=== PATIENT | female | born 1970 | race Two or more races ===

== ENCOUNTER 2019-02-28 13:46 | Day surgery (SDC) | payer OTHER ==
[2019-02-26 11:01] VITALS: BMI 32.1
--- NOTE | 2019-02-28 14:26 | HP ---
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 Persistent heavy bleeding here, repeat EMB normal, but sono showed ES 1.6cm again. History Source: Patient Limitations to Obtaining History: Language Barrier - Past Medical History BAR TENDER: No: Alzheimer's, CVA, Dementia, Migraine, Multiple Sclerosis, Peripheral Neuropathy, Parkinson's, Seizure, Syncope, TIA, Vertigo, Other Cardiovascular: No: AFIB, Aneurysm, Aortic Insufficiency, Aortic Stenosis, CAD, CHF, Deep Vein Thrombosis, HTN, Hyperlipdemia, HI, Mitral Insufficiency, Mitral Stenosis, Murmur, Pulmonary Hypertension, Other Pulmonary: No: Asthma, Bronchitis, Cancer, COPD, O2 Dependent, Pneumonia, Previously Intubated, Pulmonary Embolus, Pulmonary Fibrosis, Sleep Apnea, Other Hepatobiliary: No: Cirrhosis, Cholelithiasis, Cholecystitis, Choledocholithiasis , Hepatitis A, Hepatitis B, Hepatitis C, Other Renal/: No: Renal Failure, Renal Inusuff, BPH, Cancer, Hematuria, Hemodialysis , Neurogenic Bladder, Renal Calculi, UTI, Other Reproductive: Yes: Other (Endometrial Hyperplasia) ...LMP: 02/24/19 Heme/Onc: No: Anemia, B12 Deficiency, Bleeding Disorder, Cancer, Current Chemotherapy, Current Radiation Therapy, Hemochromatosis, Hypercoaguable State, Myeloproliferative Synd, Sickle Cell Disease, Sickle Cell Trait, Thrombocytopenia, Other Infectious Disease: No: AIDS, C-Diff, Herpes Zoster, HIV, MRSA, STD's, Tuberculosis, VREF, Other Psych: No: Addictions, Anxiety, Bipolar, Depression, Panic, Psychosis, Schizophrenia, Other Musculoskeletal: No: Bursitis, Chronic low back pain, Hemiparesis, Hemiplegia, Osteoarthritis, Paraplegia, Other Rheumatology: No: Fibromyalgia, Gout, Lupus, Rheumatoid Arthritis, Sarcoidosis, Vasculitis, Other ENT: No: Allergic Rhinitis, Sinusitis, Other Endocrine: No: Sami's Disease, Melissa's Disease, Diabetes Insipidus, Diabetes Mellitus, Hyperparathyroidism, Hyperthyroidism, Hypothyroidism, Osteopenia, SIADH, Other Dermatology: No: Basal Cell, Cellulitis, Eczema, Melanoma, Psoriasis, Squamous Cell, Other - Past Surgical History Additional Past Surgical History: D&C - Smoking History Smoking history: Never smoked Have you smoked in the past 12 months: No - Alcohol/Substance Use Hx Alcohol Use: No (occassionally) - Social History Usual Living Arrangement: Yes: Alone History of Recent Travel: No Home Medications - Allergies Allergies/Adverse Reactions: Allergies Allergy/AdvReac Type Severity Reaction Status Date / Time No Known Allergies Allergy Verified 02/28/19 13:59 - Home Medications Home Medications: Ambulatory Orders NK [No Known Home Medication] 02/26/19 Physical Examination Vital Signs: Vital Signs Temperature 97.7 F 02/28/19 14:02 Pulse Rate 72 02/28/19 14:02 Respiratory Rate 18 02/28/19 14:02 Blood Pressure 132/77 02/28/19 14:02 O2 Sat by Pulse Oximetry (%) 98 02/28/19 14:02
[2019-02-28] MEDS ORDERED: MIDAZOLAM HCL 2 MG/2 ML SINGLE DOSE VIAL ONE (16:06)
[2019-02-28] MEDS ORDERED: PROPOFOL 20 ML ONE ×2 (16:06→16:17)
[2019-02-28] MEDS ORDERED: SUCCINYLCHOLINE CHLORIDE 200 MG/10 ML VIAL ONE (16:06)
[2019-02-28] MEDS ORDERED: LIDOCAINE HCL/PF 2% SDV 5ML VIAL ONE (16:08)
[2019-02-28] MEDS ORDERED: KETOROLAC TROMETHAMINE 30 MG/1 ML VIAL ONE (16:38)
--- NOTE | 2019-02-28 16:52 | OP ---
Operative Note - Note: Operative Date: 02/28/19 Pre-Operative Diagnosis: Dysfunctional Uterine Bleeding Operation: Diagnostic Hysteroscopy, Dilation and Curretage Findings: Normal endometrium, normal ostia bilaterally, normal cervical canal Surgeon: Brenda Aguilar Anesthesia: MAC Estimated Blood Loss (mls): 15 Operative Report Dictated: Yes
[2019-02-28] MEDS ORDERED: PROMETHAZINE HCL 25 MG/1 ML VIAL IVPUSH PRN (17:40)
[2019-02-28] MEDS ORDERED: ONDANSETRON 4 MG/2 ML VIAL IVPUSH PRN (17:40)
[2019-02-28] MEDS ORDERED: oxyCODONE HCL 5 MG TABLET PO PRN (17:40)
[2019-02-28] MEDS ORDERED: LACTATED RINGERS SOLUTION 1,000 ML IV SCH (17:45)
--- NOTE | 2019-02-28 18:19 | OP ---
DATE OF OPERATION: 02/28/2019 PREOPERATIVE DIAGNOSIS: Dysfunctional uterine bleeding. POSTOPERATIVE DIAGNOSIS: Dysfunctional uterine bleeding. PROCEDURE: Diagnostic hysteroscopy, dilation and curettage. ANESTHESIA: IV sedation INTRAVENOUS FLUIDS: 400. SURGEON: Brenda Aguilar M.D. ESTIMATED BLOOD LOSS: 15 FINDINGS: Normal endocervical canal, normal endometrium, normal ostia bilaterally. Normal cervix, normal vagina. COMPLICATIONS: None. CONDITION: Stable to recovery room. DESCRIPTION OF PROCEDURE: After the appropriate consents were signed, patient was taken to the operating room. IV sedation was administered. She was placed in the dorsal lithotomy position. The operative field was prepped and draped in the normal sterile fashion. Sterile speculum was inserted into the vagina with good visualization of the cervix. The anterior lip of the cervix is grasped with single-toothed tenaculum. Cervix was then dilated with the Rodriguez dilators up to 15 in order to accommodate the size 5-mm hysteroscope which was then inserted under fluid distention. The endometrium was then distended, normal ostia were noted bilaterally, no discrete lesions were noted. Hysteroscope was then removed. The endocervical canal was then noted to be unremarkable. Using curettage, dental scrapings were taken in all 4 quadrants until a gritty texture was noted in all 4. Endometrial curettage was passed off for pathology. No bleeding was noted. The single-toothed tenaculum was removed. The bite sites for the tenaculum were noted to be hemostatic. Speculum was then removed. Patient was taken out of lithotomy position and transferred from the operating room to their recovery area in stable condition. MD ALMA CLARKE/[id number] MTDD
[2019-02-28 19:52] VITALS: BP 110/60; PULSE 53; TEMP 98.2
--- NOTE | 2019-03-02 10:48 | PATH ---
Surgical Pathology Report Patient Name: OPAL RAUSCH [facility]. Rec. #: [id number] /Age/Gender: 1970 (Age: 48) / F Account: [id number] Location: [facility] Taken: 02/28/2019 Received: 03/01/2019 Reported: 03/02/2019 Physicians: Brenda Aguilar Specimen(s) Received ENDOMETRIAL CURETTINGS Clinical History Dysfunctional uterine bleeding, history of simple hyperplasia Final Diagnosis ENDOMETRIUM, CURETTING: DISORDERED PROLIFERATIVE ENDOMETRIUM WITH AREAS OF STROMAL BREAKDOWN. BENIGN ENDOCERVICAL MUCOSA PRESENT. NO ENDOMETRIAL HYPERPLASIA OR CARCINOMA IDENTIFIED. Electronically Signed Ambrose Negron M.D. Gross Description Received in formalin labeled "endometrial curettings," is a 4.4 x 3.3 x 0.4 cm aggregate of bustillo soft tissue fragments admixed with blood clot. The formalin is filtered and the specimen is entirely submitted in 3 cassettes. /03/01/2019 saudi/03/01/2019
== END 2019-02-28 19:10 | disposition home or self-care (01) ==
LOC: JASU-SURG 13:46 → EDBD 14:00 → JASU-SURG 19:10
PROVIDERS: ATTEND Obstetrics & Gynecology
PROC: 0UDB7ZX Extraction of Endometrium, Via Natural or Artificial Opening, Diagnostic (ICD-10-PCS; principal; 2019-02-28 14:00)
PROC: 0UJD8ZZ Inspection of Uterus and Cervix, Via Natural or Artificial Opening Endoscopic (ICD-10-PCS; 2019-02-28 14:00)
DX: N93.8 Other specified abnormal uterine and vaginal bleeding (principal)
CPT/HCPCS: 86900; 88305-TC; 94760